=== PATIENT | male | born 1990 | race Caucasian/White ===

== ENCOUNTER 2016-10-09 22:15 | Emergency (ER) | payer BC ==
[~2016-10-09] VITALS: Ht 180.3 cm; Wt 106.0 kg
[2016-10-09 22:15] VITALS: BP 132/75; PULSE 108; RESP 16; TEMP 98.2; O2SAT 99
[2016-10-09] MEDS ORDERED: SODIUM CHLOR 0.9% 1000 ML INJ 1,000 ML IV SCH (22:34)
--- NOTE | 2016-10-09 22:39 | PD ---
HPI Chief Complaint: Allergic/Adverse Reaction Time Seen by Provider: 22:33 Travel History International Travel<30 days: No Contact w/Intl Traveler<30days: No Traveled to known affect area: No History of Present Illness HPI The patient is a 26-year-old male who is vacationing from [place] and ate some shrimp, snow crab some more around 7 PM today. Before he left the restaurant he was starting to get generalized pruritus. He noticed that the face on down and became red, stopping around the belt line. He denies any shortness of breath. He took 50 mg of Benadryl 3 times from 9 PM to 9:30 PM. The Benadryl did not seem to work according the patient. He had a total of 150 mg of Benadryl. PFSH Past Medical History ?: Not Social History Tobacco Use: No Allergies-Medications (Allergen,Severity, Reaction): Coded Allergies: No Known Allergies (Unverified , 10/09/16) Reported Meds & Prescriptions Reported Meds & Active Scripts Active Prednisone 50 Mg Tab 50 Mg PO BID Zantac (Ranitidine HCl) 150 Mg Tab 150 Mg PO BID Review of Systems Except as stated in HPI: all other systems reviewed are Neg Physical Exam Narrative GENERAL: The patient is alert, oriented 3 in slight apparent distress with his pruritic skin rash. SKIN: Focused skin assessment warm/dry. The skin is erythematous from the anterior mid thigh region to the scalp. HEAD: Atraumatic. Normocephalic. EYES: Pupils equal and round. No scleral icterus. No injection or drainage. ENT: No nasal bleeding or discharge. Mucous membranes pink and moist. NECK: Trachea midline. No JVD. CARDIOVASCULAR: Sinus tachycardia rate of 110. No murmur appreciated. RESPIRATORY: No accessory muscle use. Clear to auscultation. Breath sounds equal bilaterally. GASTROINTESTINAL: Abdomen soft, non-tender, nondistended. Hepatic and splenic margins not palpable. MUSCULOSKELETAL: No obvious deformities. No clubbing. No cyanosis. No edema. NEUROLOGICAL: Awake and alert. No obvious cranial nerve deficits. Motor grossly within normal limits. Normal speech. PSYCHIATRIC: Appropriate mood and affect; insight and judgment normal. Data Data Last Documented VS Vital Signs Date Time Temp Pulse Resp B/P Pulse Ox O2 Delivery O2 Flow Rate FiO2 10/09/16 22:15 99 Room Air 10/09/16 22:15 98.2 108 16 132/75 Orders Ecg Monitoring (10/09/16 22:34) Iv Access Insert/Monitor (10/09/16 22:34) Oximetry (10/09/16 22:34) Methylprednisolone So Succ Inj (Solumedr (10/09/16 22:45) Famotidine Inj (Pepcid Inj) (10/09/16 22:45) Sodium Chlor 0.9% 1000 Ml Inj (Ns 1000 M (10/09/16 22:34) Sodium Chloride 0.9% Flush (Ns Flush) (10/09/16 22:45) Epinephrine (1:1000) Inj (Adrenalin (1:1 (10/09/16 22:45) MDM Medical Decision Making Medical Screen Exam Complete: Yes Emergency Medical Condition: Yes Medical Record Reviewed: Yes Differential Diagnosis Allergic reaction, Benadryl overdose, cellulitishighly unlikely Narrative Course The patient appears to have an allergic reaction to shellfish. He also has a mild Benadryl overdose. It is now 11:04 PM and the patient has quit itching and he feels sleepy and wants to go to sleep. His pulse rate was 104 when I checked him. Diagnosis Primary Impression: Allergic reaction to shellfish Additional Instructions: As we discussed, take the prednisone one tablet twice daily for 4 days followed by one tablet once daily for 4 days. The Zantac is one tablet twice daily until the symptoms are gone. Take the Benadryl one tablet or 2 tablets every 8 hours. Wait until about 8 or 9 tomorrow morning before taking any medication. Med/Other Pt SpecificInfo: Prescription(s) given Scripts Prednisone 50 Mg Tab50 Mg PO BID #12 TAB Ref 0 Prov:Matthew Terrazas MD 10/09/16 Ranitidine (Zantac)150 Mg [id number] Mg PO BID #60 TAB Ref 0 Prov:Matthew Terrazas MD 10/09/16 Disposition: 01 DISCHARGE HOME Condition: Stable Matthew Terrazas MD Oct 09, 2016 22:39
[2016-10-09] MEDS ORDERED: methylPREDNISolone SOD SUCC 125 MG/2 ML VIAL IM ONE (22:45)
[2016-10-09] MEDS ORDERED: FAMOTIDINE 20 MG/2 ML VIAL IV PUSH ONE (22:45)
[2016-10-09] MEDS ORDERED: EPINEPHrine HCL (1:1000) 1 MG/ML VIAL IM ONE (22:45)
[2016-10-09] MEDS ORDERED: SODIUM CHLORIDE 0.9% FLUSH 10 ML FLUSH IV FLUSH PRN (22:45)
[2016-10-09] MEDS ORDERED: ZANT150T2 PO (22:59)
[2016-10-09] MEDS ORDERED: PRED50 PO (22:59)
[2016-10-09 23:09] VITALS: BP 142/78; PULSE 100; RESP 16; O2SAT 95
== END 2016-10-09 23:26 | disposition home or self-care (01) ==
LOC: PHED 22:15
DX: T78.1XXA Other adverse food reactions, not elsewhere classified, initial encounter (principal); L29.9 Pruritus, unspecified; R00.0 Tachycardia, unspecified; X58.XXXA Exposure to other specified factors, initial encounter
CPT/HCPCS: 96361; 96372; 96374; 99284; J0171; J2930; J7030